=== PATIENT | male | born 1960 | race American Indian/Alaskan Native ===

== ENCOUNTER 2018-07-27 02:06 | Emergency (ER) | payer OTHER ==
[2018-07-27 02:06] VITALS: BMI 24.5
[2018-07-27 02:21] VITALS: O2SAT 98
--- NOTE | 2018-07-27 03:14 | C.PDOC ---
History Of Present Illness 58 year old male presents to the ED c/o left wrist pain for the past 2 months. Patient reports falling and landing on his left wrist 2 months ago but patient states not feeling pain at that time. Patient reports pain worsens with movement. Patient denies weakness, numbness, new injury, fall, trauma. Time Seen by Provider: 07/27/18 02:52 Chief Complaint (Nursing): Upper Extremity Problem/Injury History Per: Patient History/Exam Limitations: no limitations Onset/Duration Of Symptoms: Persistent Current Symptoms Are (Timing): Still Present Quality: "Pain" Exacerbating Factor(s): Movement Recent travel outside of the [place]: No Additional History Per: Patient Past Medical History Reviewed: Historical Data, Nursing Documentation, Vital Signs Vital Signs: Last Vital Signs Temp 97.6 F 07/27/18 02:17 Pulse 68 07/27/18 02:17 Resp 16 07/27/18 02:17 BP 114/76 07/27/18 02:17 Pulse Ox 98 07/27/18 02:17 - Medical History PMH: Arthritis Denies: Chronic Kidney Disease Surgical History: No Surg Hx Family History: States: Unknown Family Hx - Social History Hx Tobacco Use: No Hx Alcohol Use: No Hx Substance Use: No - Immunization History Hx Tetanus Toxoid Vaccination: No Hx Influenza Vaccination: No Hx Pneumococcal Vaccination: No Review Of Systems Constitutional: Negative for: Fever, Chills Gastrointestinal: Negative for: Nausea, Vomiting Musculoskeletal: Positive for: Hand Pain. Negative for: Arm Pain Skin: Negative for: Rash Neurological: Negative for: Weakness, Numbness, Headache, Dizziness Physical Exam - Physical Exam Appears: Non-toxic, No Acute Distress Skin: Normal Color, Warm, Dry Head: Atraumatic, Normacephalic Eye(s): bilateral: Normal Inspection Neck: Normal ROM, Supple Extremity: Normal ROM, Tenderness (minimal -left dorsal aspect radial area), Capillary Refill (< 2 seconds), No Deformity, No Swelling Extremity: Bilateral: Normal Color And Temperature Pulses: Left Radial: Normal, Right Radial: Normal Neurological/Psych: Oriented x3, Normal Speech, Normal Motor, Normal Sensation Gait: Steady ED Course And Treatment O2 Sat by Pulse Oximetry: 98 (ON RA) Pulse Ox Interpretation: Normal - Other Rad Left wrist X-Ray X-Ray: Interpreted by Me, Viewed By Me Interpretation: No fx or dislocation Progress Note: Plan: - Left wrist X-ray. Pt placed in a volar splint and will follow up in clinic / PMD Reevaluation Time: 04:30 Reassessment Condition: Improved Disposition - Disposition Referrals: [facility] [Outside] Disposition Time: 04:47 Condition: STABLE Additional Instructions: Take motrin for pain Follow up in clinic Return to ER if worse Instructions: Wrist Sprain (DC) Forms: [employer] (Sinhala) - Clinical Impression Clinical Impression: Wrist pain, left - PA / ADMISSION NURSE / Resident Statement MD/DO has reviewed & agrees with the documentation as recorded. - Scribe Statement The provider has reviewed the documentation as recorded by the Scribe Roberto Garcia All medical record entries made by the Scribe were at my direction and personally dictated by me. I have reviewed the chart and agree that the record accurately reflects my personal performance of the history, physical exam, medical decision making, and the department course for this patient. I have also personally directed, reviewed, and agree with the discharge instructions and disposition.
[2018-07-27 05:30] VITALS: BP 122/71; PULSE 76; RESP 18; TEMP 98.6
--- NOTE | 2018-07-27 08:03 | RAD ---
Date of service: 07/27/2018 PROCEDURE: Left Wrist Radiographs. HISTORY: pain, left wrist COMPARISON: None. FINDINGS: BONES: Normal. No fracture. JOINTS: Normal. No dislocation. SOFT TISSUES: Normal. OTHER FINDINGS: None. IMPRESSION: Normal left wrist radiographs.
== END 2018-07-27 05:24 | disposition home or self-care (01) ==
LOC: C.ER 02:06
DX: M25.532 Pain in left wrist (principal); M19.90 Unspecified osteoarthritis, unspecified site